=== PATIENT | male | born 1975 | race African-American/Black ===

== ENCOUNTER 2024-03-31 17:50 | Emergency (ER) | payer BC ==
[~2024-03-31] VITALS: Ht 198.1 cm; Wt 137.0 kg
[2024-03-31 17:58] VITALS: BP 142/103; PULSE 97; RESP 18; TEMP 98.7; O2SAT 97
[2024-03-31] MEDS ORDERED: LIDO700A15 TP (22:08)
[2024-03-31] MEDS ORDERED: NAPR-679 MT (22:08)
== END 2024-03-31 23:30 | disposition home or self-care (01) ==
LOC: ER 17:50
DX: S09.90XA Unspecified injury of head, initial encounter (principal); V49.49XA Driver injured in collision with other motor vehicles in traffic accident, initial encounter; Y93.89 Activity, other specified; Y92.89 Other specified places as the place of occurrence of the external cause; Y99.8 Other external cause status
CPT/HCPCS: 99281; 99283

== ENCOUNTER 2025-04-30 06:42 | Emergency (ER) | payer OTHER, BC ==
[~2025-04-30] VITALS: Ht 198.1 cm; Wt 130.2 kg
[~2025-04-30 06:42] MED LIST: LIDO-53 TP; NAPR-679 MT
[2025-04-30 06:46] VITALS: O2SAT 100
[2025-04-30] MEDS: IBUPROFEN 400MG TABLET PO ONE (07:29)
[2025-04-30] MEDS ORDERED: TOPUD PO (08:26)
[2025-04-30 08:56] VITALS: BP 150/95; PULSE 82; RESP 16; TEMP 36.7; O2SAT 100
== END 2025-04-30 08:59 | disposition home or self-care (01) ==
LOC: ER 06:42
DX: S16.1XXA Strain of muscle, fascia and tendon at neck level, initial encounter (principal); S06.0XAA Concussion with loss of consciousness status unknown, initial encounter; G44.309 Post-traumatic headache, unspecified, not intractable; Z79.1 Long term (current) use of non-steroidal anti-inflammatories (NSAID); Z79.899 Other long term (current) drug therapy; V49.9XXA Car occupant (driver) (passenger) injured in unspecified traffic accident, initial encounter; Y93.89 Activity, other specified; Y92.89 Other specified places as the place of occurrence of the external cause; Y99.8 Other external cause status
CPT/HCPCS: 99284